=== PATIENT | male | born 1970 | race American Indian/Alaskan Native ===

== ENCOUNTER 2020-04-22 19:02 | Emergency (ER) | payer SELFPAY ==
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
[2020-04-22 21:25] VITALS: BP 120/87
== END 2020-04-22 20:56 | disposition home or self-care (01) ==
LOC: ED 19:02
DX: S16.1XXA Strain of muscle, fascia and tendon at neck level, initial encounter (principal); S39.012A Strain of muscle, fascia and tendon of lower back, initial encounter; Z79.899 Other long term (current) drug therapy; Z88.6 Allergy status to analgesic agent; V49.49XA Driver injured in collision with other motor vehicles in traffic accident, initial encounter; Y92.410 Unspecified street and highway as the place of occurrence of the external cause; Y93.89 Activity, other specified; Y99.8 Other external cause status
CPT/HCPCS: 72040; 72100

== ENCOUNTER 2020-06-04 16:41 | Emergency (ER) | payer SELFPAY ==
[2020-06-04 16:58] VITALS: BP 152/88
--- NOTE | 2020-06-04 18:07 | Emergency Department Report ---
ED General Adult HPI - General Chief complaint: Dental/Oral Stated complaint: TOOTHACHE Time Seen by Provider: 06/04/20 16:58 Source: patient Mode of arrival: Ambulatory Limitations: No Limitations - History of Present Illness Initial comments: 50-year-old -Fil[place] male patient presents with left upper dental pain x yesterday. He rates his current pain as a 6/10 in severity and states it worsens with chewing. Patient has been using Goody's powders and Orajel without improvement. He denies currently following with a dental specialist. Patient also denies any difficulty opening his jaw, fever/chills/sweats, or skin changes. He states there is mild left facial swelling. - Related Data Previous Rx's Medication Instructions Recorded Last Taken Type Naproxen [EC-Naprosyn] 500 mg PO BID PRN #14 tablet. 04/22/20 Unknown Rx methOCARBAMOL [Robaxin TAB] 500 mg PO BID PRN #14 tab 04/22/20 Unknown Rx Acetaminophen/Codeine [Tylenol 1 tab PO Q8H PRN #10 tab 06/04/20 Unknown Rx /Codeine # 3 tab] Naproxen 500 mg PO BID PRN #14 tablet 06/04/20 Unknown Rx Penicillin V Potassium 500 mg PO QID 7 Days #28 tablet 06/04/20 Unknown Rx Allergies Allergy/AdvReac Type Severity Reaction Status Date / Time codeine Allergy Itching Verified 06/04/20 16:54 ED Review of Systems ROS: Stated complaint: TOOTHACHE Other details as noted in HPI Constitutional: denies: chills, diaphoresis, fever, malaise, weakness ENT: dental pain. denies: throat pain Respiratory: denies: cough, shortness of breath Cardiovascular: denies: chest pain Skin: denies: change in color Neurological: denies: headache Hematological/Lymphatic: denies: swollen glands ED Past Medical Hx - Past Medical History Previous Medical History?: No - Surgical History Past Surgical History?: No - Social History Smoking Status: Current Every Day Smoker Substance Use Type: None - Medications Home Medications: Home Medications Medication Instructions Recorded Confirmed Last Taken Type Naproxen [EC-Naprosyn] 500 mg PO BID PRN #14 tablet. 04/22/20 Unknown Rx methOCARBAMOL [Robaxin TAB] 500 mg PO BID PRN #14 tab 04/22/20 Unknown Rx Acetaminophen/Codeine [Tylenol 1 tab PO Q8H PRN #10 tab 06/04/20 Unknown Rx /Codeine # 3 tab] Naproxen 500 mg PO BID PRN #14 tablet 06/04/20 Unknown Rx Penicillin V Potassium 500 mg PO QID 7 Days #28 tablet 06/04/20 Unknown Rx ED Physical Exam - General Limitations: No Limitations General appearance: alert, in no apparent distress - Head Head exam: Present: atraumatic, normocephalic - Eye Eye exam: Present: normal appearance - Expanded ENT Exam Expanded Mouth exam: Absent: drooling, trismus, muffled voice Teeth exam: Present: dental caries 1 - Dental Tenderness (Swelling noted to gumline with mild erythema; no obvious abscess noted; there is minimal overlying facial swelling without cellulitic changes) - Neck Neck exam: Present: normal inspection, full ROM. Absent: lymphadenopathy - Respiratory Respiratory exam: Absent: respiratory distress - Cardiovascular Cardiovascular Exam: Present: regular rate - Neurological Exam Neurological exam: Present: alert, oriented X3 - Psychiatric Psychiatric exam: Present: normal affect, normal mood - Skin Skin exam: Present: warm, dry, intact, normal color. Absent: rash, diaphoretic, erythema ED Course Vital Signs 06/04/20 16:54 Temperature 98.8 F Pulse Rate 80 Respiratory 20 Rate Blood Pressure 152/88 O2 Sat by Pulse 96 Oximetry ED Medical Decision Making - Medical Decision Making 50-year-old -Fil[place] male patient presents with left upper dental pain x yesterday. He rates his current pain as a 6/10 in severity and states it worsens with chewing. Patient has been using Goody's powders and Orajel without improvement. He denies currently following with a dental specialist. Patient also denies any difficulty opening his jaw, fever/chills/sweats, or skin changes. He states there is mild left facial swelling. Developing left upper dental abscess noted. Will treat with penicillin and pain meds. Patient provided with dental clinic list and informed to follow-up within 48 hours. He is well-appearing, his vitals are normal, he is stable for discharge home. Strict return precautions were discussed in detail with patient who verbalizes understanding. Critical care attestation.: If time is entered above; I have spent that time in minutes in the direct care of this critically ill patient, excluding procedure time. ED Disposition Clinical Impression: Dental infection Disposition: DC-01 TO HOME OR SELFCARE Is pt being admited?: No Condition: Stable Instructions: Dental Abscess Additional Instructions: Please follow-up with a dental specialist from the list provided within 2 days Prescriptions: Naproxen 500 mg PO BID PRN #14 tablet PRN Reason: pain Penicillin V Potassium 500 mg PO QID 7 Days #28 tablet Acetaminophen/Codeine [Tylenol /Codeine # 3 tab] 1 tab PO Q8H PRN #10 tab PRN Reason: Pain , Severe (7-10)
== END 2020-06-04 19:40 | disposition home or self-care (01) ==
LOC: ED 16:41
DX: K04.7 Periapical abscess without sinus (principal); F17.200 Nicotine dependence, unspecified, uncomplicated; Z79.899 Other long term (current) drug therapy; Z88.6 Allergy status to analgesic agent
CPT/HCPCS: 99282